=== PATIENT | female | born 2000 | race Caucasian/White ===

== ENCOUNTER → 2019-01-02 15:20 | Outpatient (CLI) | payer BC ==
[2019-01-02 15:42] LABS: BASOPHILS 0.3 % (0-2); EOSINOPHILS 1.5 % (0-7); HEMATOCRIT 36.9 % (36.0-48.0); HEMOGLOBIN 12.5 g/dL (12-16); IMMATURE GRANULOCYTES 0.2 % (0-5); LYMPHOCYTES 31.1 % (15-50); MCH 28.4 pg (26.0-34.0); MCHC 33.9 g/dL (31.0-37.0); MCV 83.9 fL (80.0-100.0); MEAN PLATELET VOLUME 9.8 fL (7.4-10.4); MONOCYTES 5.7 % (2-11); NEUTROPHILS 61.2 % (40-80); PLATELET COUNT 283 10x3/uL (130-400); RDW 12.8 % (11.5-14.5); WBC 6.6 10x3/uL (4.8-10.8)
[2019-01-02 16:19] LABS: CALC OSMOLALITY 281 mosm/kg (275-300); CALCIUM 9.6 mg/dL (8.5-10.1); CARBON DIOXIDE 29.4 mmol/L (21.0-32.0); CHLORIDE - SERUM 102 mmol/L (98-107); CREATININE - SERUM 0.9 mg/dL (0.6-1.3); FERRITIN 43 ng/mL (3-244); GLUCOSE 119 mg/dL (74-106); POTASSIUM - SERUM 3.7 mmol/L (3.5-5.1); SODIUM 141 mmol/L (136-145); THYROID STIMULATING HORMONE 1.58 uIU/mL (0.36-3.74); UREA NITROGEN 13 mg/dL (7-18); eGFR NON AFRICAN AMERICAN 85 mL/min (90-120)
== END | disposition home or self-care (01) ==
LOC: D.LAB 15:20
PROVIDERS: ATTEND Nurse Practitioner Family
DX: R53.83 Other fatigue (principal); R20.2 Paresthesia of skin

== ENCOUNTER → 2019-01-09 14:59 | Outpatient (CLI) | payer BC | END | disposition home or self-care (01) | LOC: D.MRI 14:59 | PROVIDERS: ATTEND Orthopaedic Surgery | DX: M54.12 Radiculopathy, cervical region (principal) ==

== ENCOUNTER → 2019-06-21 10:03 | Outpatient (CLI) | payer BC ==
[~2019-06-21 10:03] MED LIST: DILTIAZEM 24HR120 M3 PO; HYDROCODON-ACE1 EA10 PO; OCELLA 3 MG-0.1 EACH PO; ZOFRAN ODT4 MG/UDTAB PO
[2019-06-25 11:37] VITALS: BMI 32.6
== END | disposition home or self-care (01) ==
LOC: D.MRI 10:03
PROVIDERS: ATTEND Clinical Nurse Specialist Family Health
DX: S83.242A Other tear of medial meniscus, current injury, left knee, initial encounter (principal); X58.XXXA Exposure to other specified factors, initial encounter; M22.2X2 Patellofemoral disorders, left knee

== ENCOUNTER 2019-06-25 09:02 | Day surgery (SDC) | payer BC ==
[~2019-06-25] VITALS: Ht 177.8 cm; Wt 103.0 kg
[~2019-06-25 09:02] MED LIST changes: -HYDROCODON-ACE1 EA10 PO; -ZOFRAN ODT4 MG/UDTAB PO
[2019-06-25 09:53] LABS: HEMATOCRIT 37.7 % (36.0-48.0); HEMOGLOBIN 12.5 g/dL (12-16); MCH 28.4 pg (26.0-34.0); MCHC 33.2 g/dL (31.0-37.0); MCV 85.7 fL (80.0-100.0); MEAN PLATELET VOLUME 9.3 fL (7.4-10.4); RBC 4.4 10x6/uL (4.00-5.40); RDW 12.7 % (11.5-14.5); WBC 6.2 10x3/uL (4.8-10.8)
[2019-06-25 11:37] VITALS: BP 142/78; Ht 177.8 cm; Wt 103.0 kg
[2019-06-25 12:11] LABS: HCG URINE NEGATIVE (NEGATIVE)
[2019-06-25] MEDS ORDERED: ZOFRAN ODT4 MG/UDTAB PO (14:00)
[2019-06-25] MEDS ORDERED: HYDROCODON-ACE1 EA10 PO (14:00)
--- NOTE | 2019-06-27 15:58 | OP ---
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 PROCEDURES: 1. Left knee arthroscopic medial meniscal repair. 2. Arthroscopic aspiration of the meniscal cyst. SURGEON: Adriel Pina MD ADVERTISING OPERATIONS COORDINATOR: Humberto Goetz. INTRAOPERATIVE COMPLICATIONS: None. SUMMARY OF PATHOLOGIC FINDINGS: The patient did indeed have meniscal capsular separation with a large meniscal cyst pushing the meniscus into the joint as seen on the MRI. A total of 3 sutures were used to cross the posterolateral aspect of the medial corner. The root was not torn. A combination of Guzman and Nephew meniscal darts as well as Arthrex meniscal repair was utilized, good repair was achieved with excellent fixation of the posterior capsule. OPERATIVE SUMMARY IN DETAIL: After obtaining the appropriate preoperative orthopedic surgery consent as well as anesthetic consultation, evaluation, and clearance, the patient was brought to the operating room and placed on the operating table in supine position. After adequate general laryngeal mask airway was administered, tourniquet was placed on the proximal aspect of the left lower extremity. Left lower extremity was then prepped and draped in routine sterile fashion. At this point, the appropriate timeout was taken and agreed upon by everybody. Leg was elevated and exsanguinated, tourniquet inflated to 350 mmHg. Routine inferolateral portal was established. The knee was insufflated, superomedial and inferomedial portals were established. Diagnostic arthroscopy did show the patient to have the meniscal tear as expected seen on the MRI. First 18-gauge needle was then placed directly into the cyst and fluid was expressed. Substantial amount of thick viscous joint fluid was expressed. Having completed this, the resector was utilized to roughen the back edge. At this point, a total of 3 meniscal all-inside suture anchors were used 2 Guzman and Nephew and one Arthrex to secure the meniscus back to the posterolateral wall of the medial compartment and an attempt to close down the cystic mass as well. Good securement of the meniscus was achieved. Lateral compartment and patellofemoral compartment and all other compartments were pristine. The knee was insufflated with 0.25% Marcaine plain. Arthroscopy portals were closed in routine fashion using 4-0 Prolene. Sterile dressings were applied. The patient was awakened and taken to the recovery room in stable condition. All final needle and sponge counts were correct. OPERATIVE REPORT [id number] AYUSH LOPEZ TRANSINT:[id number] Voice Confirmation ID: [id number] DOCUMENT ID: [id number] SILVANA VALDIVIA, AD[place] at 1558 CC: [id number] DICTATION DATE: 06/25/19 1405 PROGRAMS MANAGER: 06/25/19 2243 [facility] 06/25/[address] [facility] [address] [place] [address]
== END 2019-06-25 18:05 | disposition home or self-care (01) ==
LOC: D.OPS 09:02
PROVIDERS: Anesthesiology; ATTEND Orthopaedic Surgery
DX: S83.242A Other tear of medial meniscus, current injury, left knee, initial encounter (principal)

== ENCOUNTER 2020-10-03 21:44 | Emergency (ER) | payer BC ==
[~2020-10-03] VITALS: Ht 177.8 cm; Wt 100.0 kg
[~2020-10-03 21:44] MED LIST changes: +HYDROCODON-ACE1 EA10 PO; +ZOFRAN ODT4 MG/UDTAB PO
[2020-10-03 21:52] VITALS: Ht 177.8 cm; Wt 100.0 kg
[2020-10-03 22:29] LABS: BILIRUBIN NEGATIVE (NEGATIVE); HCG URINE NEGATIVE (NEGATIVE); KETONE NEGATIVE (NEGATIVE); NITRITE NEGATIVE (NEGATIVE); UROBILINOGEN NORMAL mg/dL (< 2)
[2020-10-03 22:30] LABS: BACTERIA MANY HPF (NONE SEEN); WHITE CELLS - URINE >50 HPF (0-4)
[2020-10-03 22:37] LABS: BASOPHILS 0.3 % (0-2); EOSINOPHILS 0.7 % (0-7); HEMATOCRIT 38.2 % (36.0-48.0); HEMOGLOBIN 12.5 g/dL (12-16); IMMATURE GRANULOCYTES 0.1 % (0-5); LYMPHOCYTE ABS# 2.38 10x3/uL (1.18-3.74); MCH 28.3 pg (26.0-34.0); MCHC 32.7 g/dL (31.0-37.0); MCV 86.6 fL (80.0-100.0); MEAN PLATELET VOLUME 10.2 fL (7.4-10.4); NEUTROPHIL ABS# 6.13 10x3/uL (1.56-6.13); NEUTROPHILS 66.9 % (40-80); PLATELET COUNT 313 10x3/uL (130-400); RBC 4.41 10x6/uL (4.00-5.40); RDW 12.9 % (11.5-14.5); WBC 9.2 10x3/uL (4.8-10.8)
[2020-10-03 22:50] LABS: CALC OSMOLALITY 276 mosm/kg (275-300); CALCIUM 9.5 mg/dL (8.5-10.1); CARBON DIOXIDE 25.6 mmol/L (21.0-32.0); CHLORIDE - SERUM 102 mmol/L (98-107); CREATININE - SERUM 0.9 mg/dL (0.6-1.3); GLUCOSE 99 mg/dL (74-106); POTASSIUM - SERUM 3.8 mmol/L (3.5-5.1); SODIUM 138 mmol/L (136-145); UREA NITROGEN 14 mg/dL (7-18); eGFR NON AFRICAN AMERICAN 84 mL/min (90-120)
[2020-10-03 22:55] LABS: ALKALINE PHOSPHATASE 67 U/L (30-120); ALT (SGPT) 16 U/L (10-68)
[2020-10-03] MEDS ORDERED: ZOFRAN ODT4 MG/UDTAB PO (22:59)
[2020-10-03] MEDS ORDERED: OMNICEF300 MG PO (22:59)
[2020-10-03 23:45] VITALS: BP 131/73
== END 2020-10-03 23:45 | disposition home or self-care (01) ==
LOC: D.ER 21:44
PROVIDERS: Family Medicine
DX: N12 Tubulo-interstitial nephritis, not specified as acute or chronic (principal); I10 Essential (primary) hypertension; R31.9 Hematuria, unspecified

== ENCOUNTER → 2020-11-06 17:55 | Outpatient (CLI) | payer BC ==
[2020-10-03 21:52] VITALS: BMI 31.6
[~2020-11-06 17:55] MED LIST changes: +OMNICEF300 MG PO
[2020-11-06 18:57] LABS: BASOPHILS 0.3 % (0-2); EOSINOPHILS 1.2 % (0-7); HEMATOCRIT 35.7 % (36.0-48.0); HEMOGLOBIN 11.7 g/dL (12-16); IMMATURE GRANULOCYTES 0.1 % (0-5); LYMPHOCYTES 33.3 % (15-50); MCH 28.3 pg (26.0-34.0); MCHC 32.8 g/dL (31.0-37.0); MCV 86.4 fL (80.0-100.0); MEAN PLATELET VOLUME 10.5 fL (7.4-10.4); MONOCYTES 8.3 % (2-11); NEUTROPHIL ABS# 3.92 10x3/uL (1.56-6.13); NEUTROPHILS 56.8 % (40-80); PLATELET COUNT 337 10x3/uL (130-400); RBC 4.13 10x6/uL (4.00-5.40); WBC 6.9 10x3/uL (4.8-10.8)
[2020-11-06 19:29] LABS: C-REACTIVE PROTEIN 1.7 mg/dL (0.0-0.9); CALCIUM 9.3 mg/dL (8.5-10.1); T4 THYROXIN - FREE 1.03 ng/dL (0.76-1.46); THYROID STIMULATING HORMONE 1.82 uIU/mL (0.36-3.74)
[2020-11-06 20:04] LABS: ERYTHROCYTE SEDIMENTATION RATE 19 mm/hr (0-20)
== END | disposition home or self-care (01) ==
LOC: D.LABREF 17:55
PROVIDERS: ATTEND Clinical Nurse Specialist Family Health
DX: Z00.00 Encounter for general adult medical examination without abnormal findings (principal)